=== PATIENT | female | born 1960 | race Caucasian/White ===

== ENCOUNTER 2022-02-09 10:10 | Outpatient (REF) | payer OTHER, SELFPAY ==
--- NOTE | ~2022-02-09 | XR_ITS ---
EXAMINATION: XR HAND, RIGHT XR HAND, LEFT CLINICAL INFORMATION: Bilateral hand pain. COMPARISON: None TECHNIQUE: 3 views of each hand. FINDINGS: RIGHT HAND: Interphalangeal Joints: Small marginal osteophytes at the IP joint of the thumb indicative of mild osteoarthritis. Small enthesopathic or subchondral cysts at the second and fourth DIP joints and fourth PIP joint, no marginal erosions. Remaining bones, joints and soft tissues unremarkable. LEFT HAND: Interphalangeal Joints: Small marginal osteophytes along the dorsal aspect of the third DIP joint indicative of mild osteoarthritis. Marginal osteophytes without joint space narrowing of the IP joint of the thumb indicative of mild osteoarthritis. The remaining bone and soft tissues are normal. No marginal erosions. XR/XR hand RT min 3V IMPRESSION: Right Hand: Mild osteoarthritis. Left Hand: Mild osteoarthritis
--- NOTE | ~2022-02-09 | XR_ITS ---
EXAMINATION: XR HAND, RIGHT XR HAND, LEFT CLINICAL INFORMATION: Bilateral hand pain. COMPARISON: None TECHNIQUE: 3 views of each hand. FINDINGS: RIGHT HAND: Interphalangeal Joints: Small marginal osteophytes at the IP joint of the thumb indicative of mild osteoarthritis. Small enthesopathic or subchondral cysts at the second and fourth DIP joints and fourth PIP joint, no marginal erosions. Remaining bones, joints and soft tissues unremarkable. LEFT HAND: Interphalangeal Joints: Small marginal osteophytes along the dorsal aspect of the third DIP joint indicative of mild osteoarthritis. Marginal osteophytes without joint space narrowing of the IP joint of the thumb indicative of mild osteoarthritis. The remaining bone and soft tissues are normal. No marginal erosions. XR/XR hand LT min 3V IMPRESSION: Right Hand: Mild osteoarthritis. Left Hand: Mild osteoarthritis
== END 2022-02-09 10:11 | disposition home or self-care (01) ==
LOC: HO.HMGCX 10:10
PROVIDERS: PCP Internal Medicine; Visit Provider Internal Medicine
DX: M79.641 Pain in right hand (principal); M79.642 Pain in left hand; E78.5 Hyperlipidemia, unspecified
CPT/HCPCS: 73130

== ENCOUNTER 2023-01-08 13:20 | Outpatient (AMB) | payer OTHER, SELFPAY ==
--- NOTE | 2023-01-08 13:26 | MHC.OFFVIS ---
Intake Vital Signs 01/08/23 13:27 Height 5 ft 1 in Weight 151 lb 14.376 oz BMI 28.7 BP 108/88 Blood Pressure Location Rt brachial Position Sitting Pulse 75 Pulse Source Pulse Oximeter Temp 98 F Temp Source Skin Pulse Oximetry (%) 98 Oxygen Delivery Method Room Air Intake Visit Reasons: Joint Pain Intake Note: New patient here for joint pain. 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 She complains of bilateral shoulder and bilateral hand pain. The shoulders hurt when she lifts the arm up to the horizontal. There is no injury that she can recall. 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 She is particularly uncomfortable in the shoulders when she is lifting arms overhead. It does not seem to bother her at night. The hands hurt mostly at the base of the thumbs, this is more problematic on the right hand. There is also some soft tissue swelling she has noted on the flexor tendon side of the 2nd finger. There is no redness or warmth. She does take occasional acetaminophen for this, perhaps once or twice a week. She also uses an [id number] ointment that she does not know the name of. It looks like she was prescribed meloxicam at some point but does not recall taking it. She does not have any hand paresthesias or numbness. Other joints apparently are not painful. 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 Other serologies including Sjogren's antibodies, anti DNA, and complement levels were all normal. [facility] Medical History (Updated 01/08/23 @ 14:29 by Rashad Kiser MD) Abnormal colonoscopy Annual physical exam Hyperlipidemia Hypertension Mammogram normal Normal Pap smear Surgical History No pertinent past surgical history Family History (Updated 01/08/23 @ 13:33 by CHEO Higuera) Father No problems noted. Mother HTN (hypertension) Social History (Updated 01/08/23 @ 13:33 by CHEO Higuera) Household Members: Spouse and Children Housing: House Alcohol intake: current Alcohol intake frequency: holidays/special occasions only Alcohol type: wine Patient Tobacco Use Status: Never used Tobacco Current occupational status: employed Current occupation: Housekeeping Cognitive needs: No Hearing needs: No Vision needs: No Review of Systems Const Details: Negative for appetite change, weight change, fever, chills, malaise and fatigue Eyes Details: Some ocular dryness but does not use any eyedrops. Negative for vision change, headaches and dizziness ENT Details: Negative for hearing change, tinnitus, oral ulcer, nose bleeds and oral dryness. Card Details: Negative chest pain, edema and syncope Resp Details: Negative for SOB, cough and wheezing GI Details: Negative indigestion/heartburn, nausea, abdominal pain, bowel changes, diarrhea, constipation and bloody stool. Details: Negative for dysuria, hematuria, nocturia, decreased force/flow and genital discharge Skin/Breast Details: Negative for itching, rash, hives, Raynaud's symptoms, sun sensitivity, and skin cancer Neuro Details: Negative for epilepsy, palsy, stroke, changes in speech, tingling and weakness Psych Details: Negative for anxiety, depression and stress Endo Details: Negative for polyuria and polydypsia Shaggy/Lymph Details: Negative for excessive bruising or bleeding. Physical Exam Vital Signs: Last Vital Signs Temp 98 F 01/08/23 13:27 Pulse 75 01/08/23 13:27 BP 108/88 01/08/23 13:27 Pulse Ox 98 01/08/23 13:27 Oxygen Delivery Method Room Air 01/08/23 13:27 BMI result Body Mass Index 28.7 APPEARANCE: Patient in no acute distress EYES no redness, pupils equal and reactive to light, eyelids normal. No temporal artery tenderness, redness or swelling. EARS: External ear normal, canal clear and tympanic membrane normal. NOSE/SINUS: Airflow through both nares, no nasal discharge, no bleeding THROAT: Oral mucosa moist, no ulcerations NECK: No thyromegaly or masses, no adenopathy, trachea midline. HEART: Regulrar rhythm, S1-S2 heard, no murmurs, rubs or gallops. LUNG: Clear to percussion and auscultation ABD: Normal bowel sounds, no organomegaly, masses or tenderness. EXTREMITIES: No edema, no calf tenderness, normal peripheral pulses. There are a few spider veins on the thigh regions bilaterally but no tenderness. NEURO: Oriented and alert x3. No focal weakness. Reflexes symmetric. Gait normal. SKIN: No inflammatory or neoplastic lesions. Normal color and turgor JOINT EXAM:.?? Cervical Spine:.? Full range of motion without pain; no tenderness. Thoracic Spine:.? No scoliosis.? No tenderness on palpation. Lumbar Spine:.? Alignment normal.? Full range of motion without pain, no tenderness. Chest Wall:.? No tenderness, swelling, increased warmth or erythema. Hands:.? Right: Mild pain with range of motion at the 2nd finger. There is mild tenderness with slight swelling at the base of the thumb. There is some tenderness along the 2nd flexor tendon with a wall while nodule consistent with flexor tendon sheath cyst. It is not red or warm. No triggering is appreciated. There is no sensory loss in the fingertips. Left: Slight tenderness at the base of the thumb but no swelling is appreciated. No areas of soft tissue swelling, flexor tendon triggering, thenar atrophy or sensory loss. Wrists:.? Right: Mild discomfort with flexion or extension at 75 degrees. Most of this pain is felt on the radial aspect of the wrist where there is some slight tenderness but no redness or swelling. Left: Normal pain-free range of motion without tenderness, swelling, increased warmth or erythema. Elbows:. Normal pain-free range of motion without tenderness, swelling, increased warmth or erythema. Shoulders:.?? Right: Mild pain with a at 150 degrees. The pain is felt over the top of the shoulder and anteriorly. There is no abductor weakness, swelling or adenopathy. There is mild pain with extremes of internal rotation or more than 20 degrees of external rotation. There is no AC joint tenderness or swelling. Left: Mild discomfort with extremes of normal range of motion. The discomfort is felt over the top shoulder. There is no adenopathy, abductor weakness, soft tissue, swelling, increased warmth or erythema. Hips:.? Full range of motion without pain. Hip bursa:.? No tenderness. Knees: Right: Normal pain-free range of motion with some slight patellofemoral crepitus but no effusion or tenderness. Left:?? Normal pain-free range of motion without tenderness, swelling, increased warmth or erythema.? There is no effusion or crepitation Ankles:.? Normal pain-free range of motion without tenderness, swelling, increased warmth or erythema. Feet:.? There is mild 1st MTP bony enlargement bilaterally with some slight tenderness on the right. Range of motion in those joints is somewhat limited but there is no soft tissue swelling, increased warmth or erythema. No other tenderness or swelling in the feet. Tender points:.? No tenderness to digital palpation at the occiput, trapezius, second rib, lateral epicondyle, knees, greater trochanter and gluteal area bilaterally. ? Results Reviewed Results Reviewed: [facility] [address] [address] XRay Report Signed Patient: Annabel Byrne MR#: [id number] : 1960 Acct:[id number] Age/Sex: 61 / F ADM Date: 02/09/22 [facility] Attending Dr: Jerri Fuller MD Ordering Physician: Jerri Fuller MD Date of Service: 02/09/22 Procedure(s): XR hand RT min 3V Accession Number(s): [id number] cc: Jerri Fuller MD~ EXAMINATION: XR HAND, RIGHT? XR HAND, LEFT CLINICAL INFORMATION: Bilateral hand pain.? COMPARISON: None? TECHNIQUE: 3 views of each hand.? FINDINGS: RIGHT HAND: Interphalangeal Joints: Small marginal osteophytes at the IP joint of the thumb indicative of mild osteoarthritis. Small enthesopathic or subchondral cysts at the second and fourth DIP joints and fourth PIP joint, no marginal erosions. Remaining bones, joints and soft tissues unremarkable. LEFT HAND: Interphalangeal Joints: Small marginal osteophytes along the dorsal aspect of the third DIP joint indicative of mild osteoarthritis. Marginal osteophytes without joint space narrowing of the IP joint of the thumb indicative of mild osteoarthritis. The remaining bone and soft tissues are normal. No marginal erosions. XR/XR hand RT min 3V IMPRESSION: Right Hand: Mild osteoarthritis. ? Left Hand: Mild osteoarthritis? Dictated By: Rebel Campos MD January 2022 lab work from PCP office: NINO positive with a 1-80 titer, ESR 11, rheumatoid factor negative, CCP antibody negative Assessment & Plan Assessment & Plan (1) NINO positive: Code(s): R76.8 - Other specified abnormal immunological findings in serum (2) Bilateral hand pain: Code(s): M79.641 - Pain in right hand; M79.642 - Pain in left hand (3) Shoulder pain, bilateral: Code(s): M25.511 - Pain in right shoulder; M25.512 - Pain in left shoulder (4) Tendonitis of both rotator cuffs: Code(s): M75.81 - Other shoulder lesions, right shoulder; M75.82 - Other shoulder lesions, left shoulder (5) Ganglion cyst of flexor tendon sheath of finger: Code(s): M67.449 - Ganglion, unspecified hand (6) Osteoarthritis of hands, bilateral: Code(s): M19.041 - Primary osteoarthritis, right hand; M19.042 - Primary osteoarthritis, left hand Plan The hand pain is consistent with some osteoarthritis at the base of the thumbs. There is some minimal changes evident on the x-ray of that disorder. She does have some nodular, mobile and tender swelling at the right 2nd flexor tendon. This probably represents a tenosynovial cyst and tendinitis. She does not have any triggering so I do not think right now I would pursue a local injection. She might want to see a hand surgeon if the symptoms continue. She could continue with the acetaminophen and topical agents for the symptomatic hand pain. I do not think she has any evidence to suggest SLE in spite of the low titer NINO. Other serologies were negative. Her painful range of motion in the shoulders suggest some rotator cuff tendinitis with impingement. We will check x-rays of the shoulders. Physical therapy is recommended. They wanted to find a place for PT in [place] so I referred her to [facility]. If the hand worsens in terms of flexor tendon discomfort she could ask her primary doctor for hand surgery referral. Rheumatology follow-up at this point is not necessary. Orders: Orders XR shoulder LT min 2V Today M25.511 - Pain in right shoulder, M25.512 - Pain in left shoulder XR shoulder RT min 2V Today M25.511 - Pain in right shoulder, M25.512 - Pain in left shoulder PT Evaluation and Treatment Today M75.81 - Other shoulder lesions, right shoulder, M75.82 - Other shoulder lesions, left shoulder Coding Level of Care Code New Pt Level 3 (21554) Diagnoses NINO positive R76.8 Bilateral hand pain M79.641; M79.642 Shoulder pain, bilateral M25.511; M25.512 Tendonitis of both rotator cuffs M75.81; M75.82 Ganglion cyst of flexor tendon sheath of finger M67.449 Osteoarthritis of hands, bilateral M19.041; M19.042
[2023-01-08 13:27] VITALS: BP 108/88; PULSE 75; TEMP 36.6; O2SAT 98; BMI 28.7
== END 2023-01-08 14:29 | disposition home or self-care (01) ==
PROVIDERS: PCP Internal Medicine; Visit Provider Internal Medicine Rheumatology
DX: R76.8 Other specified abnormal immunological findings in serum (principal); M79.641 Pain in right hand; M79.642 Pain in left hand; M25.511 Pain in right shoulder; M25.512 Pain in left shoulder; M75.81 Other shoulder lesions, right shoulder; M75.82 Other shoulder lesions, left shoulder; M67.449 Ganglion, unspecified hand; M19.041 Primary osteoarthritis, right hand; M19.042 Primary osteoarthritis, left hand
CPT/HCPCS: 99203

== ENCOUNTER → 2023-01-08 13:20 | Outpatient (BNVA) | payer OTHER, SELFPAY | PROVIDERS: PCP Internal Medicine; Visit Provider Internal Medicine Rheumatology ==

== ENCOUNTER 2023-12-04 12:53 | Outpatient (AMB) | payer OTHER, SELFPAY ==
[2023-12-04 13:07] VITALS: BP 130/78; PULSE 72; O2SAT 98; BMI 27.4
--- NOTE | 2023-12-04 13:07 | A.OFFPC_ITS ---
Vital Signs 12/04/23 13:07 Height 5 ft 1 in Weight 145 lb BMI 27.4 BP 130/78 Blood Pressure Location Lt brachial Position Sitting Pulse 72 Pulse Source Pulse Oximeter Pulse Oximetry (%) 98 Oxygen Delivery Method Room Air Intake Visit Reasons: PE Intake Note: Pt is here today for PE. Allergies No Known Allergies Allergy (Verified 12/04/23 13:07) Medication List - Last Reconciled 12/04/23 by Jerri Fuller MD amlodipine 5 mg PO DAILY Tobacco use date assessed: 12/04/23 Dental Screening Dental Screen Date: 12/04/23 Did you have a dental visit in the last 12 months?: Yes Did you have a dental problem in the last 6 months where you did not have access to dental care?: No Was dental information given to patient?: Patient has dentist HPI PE HPI Details Pt presents for PE. 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 Patient complains of epigastric abdominal discomfort on and off for a few months, worse after eat ing salads, vegetables. patient denies nausea vomiting fever chills hematochezia melena constipation diarrhea. She had negative colonoscopy in 2018. Hypertension is controlled on amlodipine [facility] Medical History (Updated 12/04/23 @ 13:40 by Jerri Fuller MD) Hyperlipidemia Normal Pap smear Mammogram normal Abnormal colonoscopy Hypertension Annual physical exam Surgical History No pertinent past surgical history Family History Father No problems noted. Mother HTN (hypertension) Social History Household Members: Spouse and Children Housing: House Alcohol intake: current Alcohol intake frequency: holidays/special occasions only Alcohol type: wine Patient Tobacco Use Status: Never used Tobacco e-Cigarette/Vaping Use: Never Used service: No Current occupational status: employed Current occupation: Housekeeping Cognitive needs: No Hearing needs: No Vision needs: No Questionnaire PHQ-9 Over the last 2 weeks, how often have you been bothered by any of the following problems? 1. Little interest or pleasure in doing things: several days 2. Feeling down, depressed, or hopeless: several days 3. Trouble falling or staying asleep, or sleeping too much: not at all 4. Feeling tired or having little energy: not at all 5. Poor appetite or overeating: not at all 6. Feeling bad about yourself - or that you are a failure or have let yourself or your family down: not at all 7. Trouble concentrating on things, such as reading the newspaper or watching television: not at all 8. Moving or speaking so slowly that other people could have noticed. Or the opposite - being so fidgety or restless that you have been moving around a lot more than usual: not at all 9. Thoughts that you would be better off or of hurting yourself in some way: not at all Total score: 2 Depression Screening Interpretation: Negative Depression Screening Done: Yes Source: Developed by Drs. Adrian Garcia, Linnea Bowser, Se Booker and colleagues, with an educational emmy from [employer]. Thrive Questionnaire Date Thrive assessed: 12/04/23 I am a: Patient What is your living situation today?: I have a steady place to live Within the past 12 months, did the food you bought not last and you didn't have the money to get more?: Never true Within the past 12 months, did you worry whether your food would run out before you got money to buy more?: Never true Do you have trouble paying for medicines?: No Do you have trouble getting transportation to medical appointments?: No Do you have trouble paying your heating and electricity bill?: No Do you have trouble taking care of your child, family member or friend?: No Do you have trouble with day-to-day activities such as bathing, preparing meals, shopping, managing finances, etc.?: No Are you currently unemployed and looking for a job?: No Are you interested in more education?: No Please select the resources that you would like help with: Housing/Senior Care Currently or been in a relationship where the following occur: No concerns reported THRIVE Score: 0 AUDIT C Alcohol Use Questionnaire (AUDIT-C) 1. How often do you have a drink containing alcohol?: Never 3. How often do you have six or more drinks on one occasion?: Never Total Score: 0 ROBIN-7 AMB Questionnaire ROBIN-7 Date ROBIN - 7 assessed: 12/04/23 Feeling nervous, anxious, or on edge: 0 = Not at all Not being able to stop or control worryin = Not at all Worrying too much about different things: 0 = Not at all Trouble relaxin = Not at all Being so restless that it is hard to sit still: 0 = Not at all Becoming easily annoyed or irritable: 0 = Not at all Feeling afraid as if something awful might happen: 0 = Not at all Total ROBIN-7 score (0-4 normal; 5-9 mild; 10-14 moderate; 15-21 severe): 0 Source: Developed by Drs. Adrian Garcia, Linnea Bowser, Se Booker and colleagues, with an educational emmy from [employer]. Review of Systems Const All systems reviewed & are unremarkable except as noted in HPI and below Eyes Reports no additional complaints ENT Reports no additional complaints Card Reports no additional complaints Resp Reports no additional complaints GI Reports no additional complaints Reports no additional complaints Physical exam (Primary Care) Vital Signs: Last Vital Signs Pulse 72 12/04/23 13:07 BP 130/78 12/04/23 13:07 Pulse Ox 98 12/04/23 13:07 Oxygen Delivery Method Room Air 12/04/23 13:07 BMI result Body Mass Index 27.4 Tobacco/Smoking Status: Tobacco use Status Tobacco use date assessed 12/04/23 12/04/23 13:12 Patient Tobacco Use Status Never used Tobacco 12/04/23 13:12 e-Cigarette/Vaping Use Never Used 12/04/23 13:12 PHQ-9: PHQ-9 Score PHQ-9: Total score 2 12/04/23 13:12 Depression Screening Interpretation: Negative Thrive Assessment: Date of Thrive Assessment Date Thrive assessed 12/04/23 12/04/23 13:12 Currently or been in a relationship where the following occur: No concerns reported Const General: no acute distress HENMT Head: Yes normal to inspection Face and sinus: Yes normal facial exam Mouth: Normal oral and palatal mucosa present Eyes General: appearance normal, both eyes and all related structures Neck Neck: Yes no lymphadenopathy and Yes supple Resp Effort & Inspection: normal respiratory effort Auscultation: clear to auscultation bilaterally Cardio Rhythm: regular rhythm Heart sounds: S1 normal heart sound present and S2 normal heart sound present GI Inspection: Yes normal to inspection Palpation (GI): Soft to palpation Percussion: Yes normal to percussion Auscultation: normal bowel sounds Assessment and Plan Assessment & Plan (1) Abdominal pain: Comment: RUQ pain Code(s): R10.9 - Unspecified abdominal pain Plan: Obtain abdominal ultrasound to rule out gallstones, well-balanced diet, avoidance of dairy, trial of Pepcid discussed with the patient (2) Shoulder pain, right: Code(s): M25.511 - Pain in right shoulder Plan: For chronic like shoulder pain check x-ray. Patient declined physical therapy because of high co-payment (3) Hyperlipidemia: Code(s): E78.5 - Hyperlipidemia, unspecified Plan: Fenofibrate 160 will be started lipid profile will be checked in 1 month (4) Hyperglycemia: Code(s): R73.9 - Hyperglycemia, unspecified Plan: ADA diet regular exercise weight loss discussed with the patient check A1c (5) Abnormal colonoscopy: Comment: 01/2019 [facility], 2 polyps hyperplastic, repeat in 10 years Code(s): R93.3 - Abnormal findings on diagnostic imaging of other parts of digestive tract (6) Hypertension: Code(s): I10 - Essential (primary) hypertension Plan: Continue amlodipine Orders: Orders US abdomen complete Today R10.9 - Unspecified abdominal pain XR shoulder RT min 2V Today M25.511 - Pain in right shoulder Comprehensive [place]. Panel Fast 1 Month E78.5 - Hyperlipidemia, unspecified, M25.511 - Pain in right shoulder, M25.512 - Pain in left shoulder, R73.9 - Hyperglycemia, unspecified Lipid Panel 1 Month E78.5 - Hyperlipidemia, unspecified, M25.511 - Pain in right shoulder, M25.512 - Pain in left shoulder, R73.9 - Hyperglycemia, unspecified Hemoglobin A1c 1 Month E78.5 - Hyperlipidemia, unspecified, M25.511 - Pain in right shoulder, M25.512 - Pain in left shoulder, R73.9 - Hyperglycemia, unspecified XR shoulder RT min 2V 01/08/23 M25.511 - Pain in right shoulder, M25.512 - Pain in left shoulder Medications: New fenofibrate 160 mg PO DAILY 90 tabs 0RF Coding Level of Care Code Est Pt Prev Care 40-64y(40855) Diagnoses Abdominal pain R10.9 Shoulder pain, right M25.511 Hyperlipidemia E78.5 Hyperglycemia R73.9 Abnormal colonoscopy R93.3 Hypertension I10
== END 2023-12-04 13:45 | disposition home or self-care (01) ==
PROVIDERS: PCP Internal Medicine; Visit Provider Internal Medicine
DX: Z00.00 Encounter for general adult medical examination without abnormal findings (principal); R10.9 Unspecified abdominal pain; M25.511 Pain in right shoulder; E78.5 Hyperlipidemia, unspecified; R73.9 Hyperglycemia, unspecified; R93.3 Abnormal findings on diagnostic imaging of other parts of digestive tract; I10 Essential (primary) hypertension
CPT/HCPCS: 99396

== ENCOUNTER 2023-12-04 13:37 | Outpatient (REF) | payer OTHER, SELFPAY ==
--- NOTE | ~2023-12-04 | XR_ITS ---
EXAMINATION: XR SHOULDER, RIGHT CLINICAL INFORMATION: Pain COMPARISON: None available. TECHNIQUE: Four views of the right shoulder. FINDINGS: No acute visible fracture or dislocation. Mild degenerative arthropathy of the glenohumeral and clavicular joint. Joint spaces are maintained. Soft tissues are unremarkable. Visualized portions of the chest are unremarkable. XR/XR shoulder RT min 2V IMPRESSION: 1. No acute visible fracture or dislocation. 2. Mild degenerative arthropathy of the glenohumeral and acromioclavicular joint.
== END 2023-12-04 13:38 | disposition home or self-care (01) ==
LOC: HO.HMGCX 13:37
PROVIDERS: PCP Internal Medicine; Visit Provider Internal Medicine
DX: M25.511 Pain in right shoulder (principal)
CPT/HCPCS: 73030

== ENCOUNTER 2023-12-13 08:56 | Outpatient (REF) | payer OTHER, SELFPAY ==
--- NOTE | ~2023-12-13 | US_ITS ---
EXAMINATION: US ABDOMEN COMPLETE CLINICAL INFORMATION: Unspecified abdominal pain. COMPARISON: None available. TECHNIQUE: Real-time imaging of the abdominal viscera. FINDINGS: PANCREAS: Tail obscured. ABDOMINAL AORTA: The proximal, mid, and distal segments are normal in caliber. Atherosclerotic changes. INFERIOR VENA CAVA: Visualized portions are normal. LIVER: The liver is normal in size. The liver contour is normal. Parenchymal echogenicity is normal. No focal hepatic lesion. There is no intrahepatic biliary duct dilatation seen. GALLBLADDER: Sludge and stones in the gallbladder. No gallbladder wall thickening or pericholecystic fluid. Negative sonographic Hicks's sign. COMMON BILE DUCT: Normal in caliber measuring 0.3 cm in diameter. RIGHT KIDNEY: No hydronephrosis. No renal calculi or focal parenchymal lesions. The kidney measures 12.1 cm in maximum dimension. LEFT KIDNEY: No hydronephrosis. No renal calculi. The kidney measures 10.9 cm in maximum dimension. Midpole cyst measures 1.2 x 1.5 x 1.7 cm. No further routine imaging follow-up is needed. SPLEEN: The spleen measures 10.7 cm in maximum dimension. FREE FLUID: None. US/US abdomen complete IMPRESSION: Cholelithiasis without sonographic evidence of acute cholecystitis.
== END 2023-12-13 08:57 | disposition home or self-care (01) ==
LOC: HO.HMGCX 08:56
PROVIDERS: PCP Internal Medicine; Visit Provider Internal Medicine
DX: R10.9 Unspecified abdominal pain (principal)
CPT/HCPCS: 76700

== ENCOUNTER 2024-01-02 11:18 | Outpatient (AMB) | payer OTHER, SELFPAY ==
[2024-01-02 11:24] VITALS: BP 136/74; PULSE 73; O2SAT 97; BMI 26.3
--- NOTE | 2024-01-02 11:24 | MHC.PC.OV ---
Vital Signs 01/02/24 11:24 Height 5 ft 1 in Weight 139 lb BMI 26.3 BP 136/74 Blood Pressure Location Lt brachial Position Sitting Pulse 73 Pulse Source Pulse Oximeter Pulse Oximetry (%) 97 Oxygen Delivery Method Room Air Intake Visit Reasons: CT-SCAN results review Intake Note: Pt is here today for ER follow up visit. Allergies No Known Allergies Allergy (Verified 01/02/24 11:29) Medication List - Last Reconciled 01/02/24 by Jerri Fuller MD amlodipine 5 mg PO DAILY fenofibrate 160 mg PO DAILY Tobacco use date assessed: 01/02/24 Dental Screening Dental Screen Date: 12/04/[address]-SCAN results review HPI Details Patient presents for the follow-up of ER visit on December 29 for left sided abdominal pain nausea and vomiting. The workup included CT of the abdomen and pelvis which showed constipation, gallbladder wall thickening without inflammatory changes and cystic lesion in the left pelvis posteriorly to distal sigmoid colon measuring 5.1 x 4.2 x 4.2 cm differential paraovarian cyst or neoplasm, MRI recommended. Patient reports persistent discomfort in left lower quadrant but no nausea vomiting fever chills [facility] Medical History (Updated 01/02/24 @ 12:42 by Jerri Fuller MD) Normal Pap smear Hyperlipidemia Mammogram normal Abnormal colonoscopy Hypertension Annual physical exam Surgical History No pertinent past surgical history Family History Father No problems noted. Mother HTN (hypertension) Social History Household Members: Spouse and Children Housing: House Alcohol intake: current Alcohol intake frequency: holidays/special occasions only Alcohol type: wine Patient Tobacco Use Status: Never used Tobacco e-Cigarette/Vaping Use: Never Used service: No Current occupational status: employed Current occupation: Housekeeping Cognitive needs: No Hearing needs: No Vision needs: No Questionnaire PHQ-9 Over the last 2 weeks, how often have you been bothered by any of the following problems? 1. Little interest or pleasure in doing things: several days 2. Feeling down, depressed, or hopeless: several days 3. Trouble falling or staying asleep, or sleeping too much: not at all 4. Feeling tired or having little energy: not at all 5. Poor appetite or overeating: not at all 6. Feeling bad about yourself - or that you are a failure or have let yourself or your family down: not at all 7. Trouble concentrating on things, such as reading the newspaper or watching television: not at all 8. Moving or speaking so slowly that other people could have noticed. Or the opposite - being so fidgety or restless that you have been moving around a lot more than usual: not at all 9. Thoughts that you would be better off or of hurting yourself in some way: not at all Total score: 2 Depression Screening Interpretation: Negative Depression Screening Done: Yes Source: Developed by Drs. Adrian Garcia, Linnea Bowser, Se Booker and colleagues, with an educational emmy from [employer]. Thrive Questionnaire Date Thrive assessed: 12/04/23 I am a: Patient What is your living situation today?: I have a steady place to live Within the past 12 months, did the food you bought not last and you didn't have the money to get more?: Never true Within the past 12 months, did you worry whether your food would run out before you got money to buy more?: Never true Do you have trouble paying for medicines?: No Do you have trouble getting transportation to medical appointments?: No Do you have trouble paying your heating and electricity bill?: No Do you have trouble taking care of your child, family member or friend?: No Do you have trouble with day-to-day activities such as bathing, preparing meals, shopping, managing finances, etc.?: No Are you currently unemployed and looking for a job?: No Are you interested in more education?: No Please select the resources that you would like help with: None Currently or been in a relationship where the following occur: No concerns reported THRIVE Score: 0 AUDIT C Alcohol Use Questionnaire (AUDIT-C) 1. How often do you have a drink containing alcohol?: Never 3. How often do you have six or more drinks on one occasion?: Never Total Score: 0 ROBIN-7 AMB Questionnaire ROBIN-7 Date ROBIN - 7 assessed: 12/04/23 Feeling nervous, anxious, or on edge: 0 = Not at all Not being able to stop or control worryin = Not at all Worrying too much about different things: 0 = Not at all Trouble relaxin = Not at all Being so restless that it is hard to sit still: 0 = Not at all Becoming easily annoyed or irritable: 0 = Not at all Feeling afraid as if something awful might happen: 0 = Not at all Total ROBIN-7 score (0-4 normal; 5-9 mild; 10-14 moderate; 15-21 severe): 0 Source: Developed by Drs. Adrian Garcia, Linnea Bowser, Se Booker and colleagues, with an educational emmy from [employer]. Review of Systems Const All systems reviewed & are unremarkable except as noted in HPI and below Eyes Reports no additional complaints ENT Reports no additional complaints Card Reports no additional complaints Resp Reports no additional complaints GI Reports no additional complaints Reports no additional complaints Physical exam (Primary Care) Vital Signs: Last Vital Signs Pulse 73 01/02/24 11:24 BP 136/74 01/02/24 11:24 Pulse Ox 97 01/02/24 11:24 Oxygen Delivery Method Room Air 01/02/24 11:24 BMI result Body Mass Index 26.3 Tobacco/Smoking Status: Tobacco use Status Tobacco use date assessed 01/02/24 01/02/24 11:29 Patient Tobacco Use Status Never used Tobacco 01/02/24 11:29 e-Cigarette/Vaping Use Never Used 01/02/24 11:24 PHQ-9: PHQ-9 Score PHQ-9: Total score 2 01/02/24 11:24 Depression Screening Interpretation: Negative Thrive Assessment: Date of Thrive Assessment Date Thrive assessed 12/04/23 01/02/24 11:24 Currently or been in a relationship where the following occur: No concerns reported Const General: no acute distress Eyes General: appearance normal, both eyes and all related structures Resp Effort & Inspection: normal respiratory effort Auscultation: clear to auscultation bilaterally Cardio Rhythm: regular rhythm Heart sounds: S1 normal heart sound present and S2 normal heart sound present GI Inspection: Yes normal to inspection Palpation (GI): Soft to palpation Percussion: Yes normal to percussion Auscultation: normal bowel sounds Assessment and Plan Assessment & Plan (1) Ovarian mass, left: Comment: 5.1 x4.2x4.2 cm Complex cystic lesion and left pelvis with nodular mineralized component CT abd/pelvis 04/30/2024 Code(s): N83.8 - Other noninflammatory disorders of ovary, fallopian tube and broad ligament Plan: schedule MR to evaluate (2) Serrated polyp of colon: Comment: 2019 [facility] Code(s): K63.5 - Polyp of colon Plan: 2nd referral to GI for colonoscopy (3) Constipation: Code(s): K59.00 - Constipation, unspecified Plan: Patient was advised to try MiraLax at least twice a day until regular bowel movements, increase fiber and fluid intake (4) Normal Pap smear: Comment: senior account representative 2019 Dr. Orr, 07/2023 (5) Hypertension: Code(s): I10 - Essential (primary) hypertension Plan: Continue Amlodipine Orders: Orders MR pelvis wo/w con Today N83.8 - Other noninflammatory disorders of ovary, fallopian tube and broad ligament Referrals Gastroenterology Referral K59.00 - Constipation, unspecified, K63.5 - Polyp of colon Coding Level of Care Code Est Pt Level 4 (83362) Diagnoses Ovarian mass, left N83.8 Serrated polyp of colon K63.5 Constipation K59.00 Normal Pap smear Z12.4 Hypertension I10
== END 2024-01-02 12:45 | disposition home or self-care (01) ==
PROVIDERS: PCP Internal Medicine; Visit Provider Internal Medicine
DX: N83.8 Other noninflammatory disorders of ovary, fallopian tube and broad ligament (principal); K63.5 Polyp of colon; K59.00 Constipation, unspecified; Z12.4 Encounter for screening for malignant neoplasm of cervix; I10 Essential (primary) hypertension
CPT/HCPCS: 99214

== ENCOUNTER 2024-01-02 12:21 | Outpatient (REF) | payer OTHER, SELFPAY ==
[2024-01-02 17:20] LABS: Alanine Aminotransferase 17 U/L (0-31); Albumin Level 4.2 g/dL (3.5-5.0); Alkaline Phosphatase 56 U/L (39-117); Anion Gap 12 (12-20); Aspartate Amino Transferase 14 U/L (5-31); Bilirubin Total 0.4 mg/dL (0.0-1.0); Blood Urea Nitrogen 12 mg/dL (9-16); Calcium 9.9 mg/dL (8.4-10.2); Carbon Dioxide 25 mmol/L (22-29); Chloride 106 mmol/L (96-108); Cholesterol 165 mg/dL (<200); Estimated Glomerular Filt Rate > 60; Glucose Fasting 89 mg/dL (60-99); HDL Cholesterol 46 mg/dL (>40); LDL Cholesterol Calculated 99 mg/dL (<100); Potassium 3.6 mmol/L (3.3-5.1); Sodium 139 mmol/L (135-145); Total Protein 7.2 g/dL (6.5-8.0); Triglycerides 101 mg/dL (<150)
[2024-01-02 17:57] LABS: Estimated Average Glucose 114 mg/dL; Hemoglobin A1c % 5.6 % (<6.0)
== END 2024-01-02 12:22 | disposition home or self-care (01) ==
LOC: HO.HMGCLDS 12:21
PROVIDERS: PCP Internal Medicine; Visit Provider Internal Medicine
DX: R73.9 Hyperglycemia, unspecified (principal); M25.512 Pain in left shoulder; M25.511 Pain in right shoulder; E78.5 Hyperlipidemia, unspecified
CPT/HCPCS: 36415; 80053; 80061; 83036

== ENCOUNTER 2024-12-12 09:38 | Outpatient (AMB) | payer OTHER, SELFPAY ==
[2024-12-12 09:40] VITALS: BP 142/82; PULSE 66; RESP 18; TEMP 36.6; O2SAT 98; BMI 27.2
--- NOTE | 2024-12-12 09:40 | A.OFFPC_ITS ---
Vital Signs 12/12/24 09:40 Height 5 ft 1 in Weight 144 lb BMI 27.2 BP 142/82 H Blood Pressure Location Lt brachial Position Sitting Respiration 18 Pulse 66 Pulse Source Pulse Oximeter Temp 97.9 F Temp Source Oral Pulse Oximetry (%) 98 Oxygen Delivery Method Room Air Intake Visit Reasons: Annual PE Intake Note: Pt is here today for PE. Allergies No Known Allergies Allergy (Verified 12/12/24 09:42) Medication List - Last Reconciled 12/12/24 by Jerri Fuller MD amlodipine 5 mg PO DAILY Tobacco use date assessed: 12/12/24 Dental Screening Dental Screen Date: 12/12/24 Did you have a dental visit in the last 12 months?: Yes Did you have a dental problem in the last 6 months where you did not have access to dental care?: No Was dental information given to patient?: Patient has dentist HPI Annual PE HPI Details Patient presents for physical. She complains of bilateral hands feeling tingling numb and painful worse at night but also when using her hands a lot. 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 [facility] Medical History (Updated 12/12/24 @ 16:34 by Jerri Fuller MD) Annual physical exam Abnormal carotid pulse Normal Pap smear Hyperlipidemia Mammogram normal Abnormal colonoscopy Hypertension Surgical History No pertinent past surgical history Family History Father No problems noted. Mother HTN (hypertension) Social History Household Members: Spouse and Children Housing: House Alcohol intake: current Alcohol intake frequency: holidays/special occasions only Alcohol type: wine Patient Tobacco Use Status: Never used Tobacco e-Cigarette/Vaping Use: Never Used service: No Current occupational status: employed Current occupation: Housekeeping Cognitive needs: No Hearing needs: No Vision needs: No Questionnaire PHQ-9 Over the last 2 weeks, how often have you been bothered by any of the following problems? 1. Little interest or pleasure in doing things: not at all 2. Feeling down, depressed, or hopeless: not at all 3. Trouble falling or staying asleep, or sleeping too much: not at all 4. Feeling tired or having little energy: not at all 5. Poor appetite or overeating: not at all 6. Feeling bad about yourself - or that you are a failure or have let yourself or your family down: not at all 7. Trouble concentrating on things, such as reading the newspaper or watching television: not at all 8. Moving or speaking so slowly that other people could have noticed. Or the opposite - being so fidgety or restless that you have been moving around a lot more than usual: not at all 9. Thoughts that you would be better off or of hurting yourself in some way: not at all Total score: 0 Depression Screening Interpretation: Negative Depression Screening Done: Yes [id number] - PHQ-9 Billing: Yes Source: Developed by Drs. Adrian Garcia, Linnea Bowser, Se Booker and colleagues, with an educational emmy from [employer]. Thrive Questionnaire Date Thrive assessed: 12/12/24 I am a: Patient What is your living situation today?: I have a steady place to live Within the past 12 months, did the food you bought not last and you didn't have the money to get more?: Never true Within the past 12 months, did you worry whether your food would run out before you got money to buy more?: Never true Do you have trouble paying for medicines?: No Do you have trouble getting transportation to medical appointments?: No Do you have trouble paying your heating and electricity bill?: No Do you have trouble taking care of your child, family member or friend?: No Do you have trouble with day-to-day activities such as bathing, preparing meals, shopping, managing finances, etc.?: No Are you currently unemployed and looking for a job?: No Are you interested in more education?: No Please select the resources that you would like help with: None Currently or been in a relationship where the following occur: No concerns reported THRIVE Score: 0 AUDIT C Alcohol Use Questionnaire (AUDIT-C) 1. How often do you have a drink containing alcohol?: 2-4 times a month 2. How many drinks containing alcohol do you have on a typical day when you are drinking?: 1 or 2 3. How often do you have six or more drinks on one occasion?: Less than monthly Total Score: 3 ROBIN-7 AMB Questionnaire ROBIN-7 Date ROBIN - 7 assessed: 12/12/24 Feeling nervous, anxious, or on edge: 0 = Not at all Not being able to stop or control worryin = Not at all Worrying too much about different things: 0 = Not at all Trouble relaxin = Not at all Being so restless that it is hard to sit still: 0 = Not at all Becoming easily annoyed or irritable: 0 = Not at all Feeling afraid as if something awful might happen: 0 = Not at all Total ROBIN-7 score (0-4 normal; 5-9 mild; 10-14 moderate; 15-21 severe): 0 Source: Developed by Drs. Adrian Garcia, Linnea Bowser, Se Booker and colleagues, with an educational emmy from [employer]. ROBIN-7 Assessment Billing ROBIN-7 Assessment Tool: ROBIN-7 Assessment 91523 Review of Systems Const All systems reviewed & are unremarkable except as noted in HPI and below Eyes Reports no additional complaints ENT Reports no additional complaints Card Reports no additional complaints Resp Reports no additional complaints GI Reports no additional complaints Reports no additional complaints Physical exam (Primary Care) Vital Signs: Last Vital Signs Temp 97.9 F 12/12/24 09:40 Pulse 66 12/12/24 09:40 Resp 18 12/12/24 09:40 BP 142/82 H 12/12/24 09:40 Pulse Ox 98 12/12/24 09:40 Oxygen Delivery Method Room Air 12/12/24 09:40 BMI result Body Mass Index 27.2 Tobacco/Smoking Status: Tobacco use Status Tobacco use date assessed 12/12/24 12/12/24 09:47 Patient Tobacco Use Status Never used Tobacco 12/12/24 09:47 e-Cigarette/Vaping Use Never Used 12/12/24 09:47 PHQ-9: PHQ-9 Score PHQ-9: Total score 0 12/12/24 10:58 Depression Screening Interpretation: Negative Thrive Assessment: Date of Thrive Assessment Date Thrive assessed 12/12/24 12/12/24 09:47 Currently or been in a relationship where the following occur: No concerns reported Const General: no acute distress HENMT Head: Yes normal to inspection Ears: hearing grossly normal bilaterally Face and sinus: Yes normal facial exam Throat: Yes posterior oropharynx normal Eyes General: appearance normal, both eyes and all related structures Neck Other: There is an asymmetric pulsing in the right carotid artery versus left no te nderness in the area Neck: Yes no lymphadenopathy and Yes supple Resp Effort & Inspection: normal respiratory effort Auscultation: clear to auscultation bilaterally Cardio Rhythm: regular rhythm Heart sounds: S1 normal heart sound present and S2 normal heart sound present GI Inspection: Yes normal to inspection Palpation (GI): Soft to palpation Percussion: Yes normal to percussion Auscultation: normal bowel sounds Coding Level of Care Code Est Pt Prev Care 40-64y(51711) Diagnoses Carpal tunnel syndrome G56.00 Abnormal colonoscopy R93.3 Hypertension I10 Hyperlipidemia E78.5 Abnormal carotid pulse R09.89 Annual physical exam Z00.00 Additional Codes ROBIN-7 Assessment Billing - ROBIN-7 Assessment Tool: ROBIN-7 Assessment 45794 ([id number]) PHQ-9 - 20380 - PHQ-9 Billing: Yes ([id number]) Assessment & Plan Assessment & Plan (1) Carpal tunnel syndrome: Code(s): G56.00 - Carpal tunnel syndrome, unspecified upper limb Category: Medical Plan: Obtain nerve conduction study to evaluate for bilateral carpal tunnel (2) Abnormal colonoscopy: Comment: 01/2019 [facility], 2 polyps: 1 hyperplastic and 1 serrated, repeat 5 yrs, referred to GI 01/2023 Code(s): R93.3 - Abnormal findings on diagnostic imaging of other parts of digestive tract Category: Medical Plan: Patient's never scheduled an appointment with GI. She will be referred to GI for repeat colonoscopy as soon as possible (3) Hypertension: Code(s): I10 - Essential (primary) hypertension Category: Medical Plan: Increase amlodipine to 7.5 mg daily follow-up in 2 months (4) Hyperlipidemia: Code(s): E78.5 - Hyperlipidemia, unspecified Category: Medical Plan: Continue low-cholesterol diet increase physical activity weight loss discussed with the patient (5) Abnormal carotid pulse: Comment: R carotid Code(s): R09.89 - Other specified symptoms and signs involving the circulatory and respiratory systems Category: Medical Plan: Obtain carotid ultrasound Doppler to evaluate for right carotid artery aneurysm (6) Annual physical exam: Code(s): Z00.00 - Encounter for general adult medical examination without abnormal findings Category: Medical Plan: Well-balanced diet regular physical activity weight loss discussed with the patient. She will call to schedule mammogram will be referred to GI and is up-to-date with the Pap smear by coil tier Orders: Orders US carotid duplex BI Today R09.89 - Other specified symptoms and signs i nvolving the circulatory and respiratory systems NE nerve conduction velocity Today G56.03 - Carpal tunnel syndrome, bilateral upper limbs Comprehensive [place]. Panel Fast Today E78.5 - Hyperlipidemia, unspecified, I10 - Essential (primary) hypertension Lipid Panel Today E78.5 - Hyperlipidemia, unspecified, I10 - Essential (primary) hypertension TSH reflex Free T4 Today E78.5 - Hyperlipidemia, unspecified, I10 - Essential (primary) hypertension Complete Blood Count Auto Diff Today E78.5 - Hyperlipidemia, unspecified, I10 - Essential (primary) hypertension Vitamin D 25-OH Total Today E78.5 - Hyperlipidemia, unspecified, I10 - Essenti al (primary) hypertension Referrals Gastroenterology Referral K63.5 - Polyp of colon, R93.3 - Abnormal findings on diagnostic imaging of other parts of digestive tract Medications: Changed From amlodipine 5 mg PO DAILY 90 tabs 3RF To amlodipine 1 /12 orally daily; 135 tabs 3RF Refilled amlodipine 5 mg PO DAILY 90 tabs 3RF
== END 2024-12-12 11:02 | disposition home or self-care (01) ==
PROVIDERS: PCP Internal Medicine; Visit Provider Internal Medicine
DX: G56.00 Carpal tunnel syndrome, unspecified upper limb (principal); R93.3 Abnormal findings on diagnostic imaging of other parts of digestive tract; I10 Essential (primary) hypertension; E78.5 Hyperlipidemia, unspecified; R09.89 Other specified symptoms and signs involving the circulatory and respiratory systems; Z00.00 Encounter for general adult medical examination without abnormal findings

== ENCOUNTER 2024-12-12 09:38 | Outpatient (REF) | payer OTHER, SELFPAY ==
[2024-12-12 14:26] LABS: MANUAL DIFF FLAG NO
[2024-12-12 14:33] LABS: Hematocrit 38.6 % (37.0-47.0); Hemoglobin 12.8 g/dl (12.0-16.0); Imm Gran Abs Auto 0.01 X10*3/uL (0.00-0.03); Imm Gran Pct Auto 0.1 % (0.0-0.4); Lymphocytes Absolute Auto 3.6 X10*3/uL (1.2-4.9); Mean Corpuscular HGB Conc 33.2 g/dl (31.0-35.0); Mean Corpuscular Hemoglobin 27.8 pg (27.0-33.0); Mean Corpuscular Volume 83.7 fL (80.0-98.0); NRBC Abs Auto 0.000 X10*3/uL (0.0-0.012); NRBC Pct Auto 0.0 /100WBC (0.0-0.2); Platelet Count 292 X10*3/uL (160-400); Red Blood Count 4.61 X10*6/uL (4.20-5.50); White Blood Count 7.4 X10*3/uL (4.8-10.8)
[2024-12-12 15:04] LABS: Alanine Aminotransferase 19 U/L (0-31); Albumin Level 4.5 g/dL (3.5-5.0); Alkaline Phosphatase 88 U/L (39-117); Anion Gap 11 (12-20); Aspartate Amino Transferase 24 U/L (5-31); Blood Urea Nitrogen 8 mg/dL (9-16); Calcium 9.5 mg/dL (8.4-10.2); Carbon Dioxide 28 mmol/L (22-29); Chloride 106 mmol/L (96-108); Cholesterol 260 mg/dL (<200); Estimated Glomerular Filt Rate > 60; HDL Cholesterol 47 mg/dL (>40); Potassium 3.5 mmol/L (3.3-5.1); Sodium 141 mmol/L (135-145); Total Protein 7.5 g/dL (6.5-8.0); Triglycerides 213 mg/dL (<150)
== END 2024-12-12 09:39 | disposition home or self-care (01) ==
LOC: HO.HMGCLDS 09:38
PROVIDERS: PCP Internal Medicine; Visit Provider Internal Medicine
DX: Z00.00 Encounter for general adult medical examination without abnormal findings (principal); I10 Essential (primary) hypertension; E78.5 Hyperlipidemia, unspecified; G56.00 Carpal tunnel syndrome, unspecified upper limb; R93.3 Abnormal findings on diagnostic imaging of other parts of digestive tract; R09.89 Other specified symptoms and signs involving the circulatory and respiratory systems; Z79.899 Other long term (current) drug therapy; Z13.31 Encounter for screening for depression; Z13.39 Encounter for screening examination for other mental health and behavioral disorders
CPT/HCPCS: 36415; 80053; 80061; 82306; 84443; 85025; 96127

== ENCOUNTER 2025-02-09 15:29 | Outpatient (REF) | payer OTHER, SELFPAY ==
--- NOTE | ~2025-02-09 | US_ITS ---
EXAMINATION: US EXTRACRANIAL CAROTID DUPLEX, BILATERAL CLINICAL INFORMATION: R09.89 - Other specified symptoms and signs involving the circulatory COMPARISON: None available. TECHNIQUE: Real-time ultrasound and Doppler techniques (integrating B-mode 2-D vascular images, Doppler spectral analysis and color-flow Doppler imaging) were utilized to interrogate the extracranial carotid arteries, the vertebral arteries and proximal subclavian arteries bilaterally. The degree of stenosis is determined by criteria similar to NASCET. FINDINGS: Right Side: 1. There is no atherosclerotic plaque seen in the bifurcation/proximal ICA region. 2. The common carotid artery PSV proximally is 158 cm/s and distally 62 cm/s. 3. The proximal internal carotid artery velocities are 64 cm/s systolic and 18 cm/s diastolic. 4. The proximal external carotid artery PSV is 88 cm/s. 5. The vertebral artery shows antegrade flow. 6. The subclavian artery waveforms are biphasic. ICA/CCA ratio 0.4 Left Side: 1. There is no atherosclerotic plaque seen in the bifurcation/proximal ICA region. 2. The common carotid artery PSV proximally is 86 cm/s and distally 63 cm/s. 3. The proximal internal carotid artery velocities are 53 cm/s systolic and 18 cm/s diastolic. 4. The proximal external carotid artery PSV is 82 cm/s. 5. The vertebral artery shows antegrade flow. 6. The subclavian artery waveforms are triphasic. ICA/CCA ratio 0.6 US/US carotid duplex BI IMPRESSION: 1. RIGHT: No hemodynamically significant stenosis 2. LEFT: No hemodynamically significant stenosis. Electronically signed by: Bird Bond MD 02/09/2025 04:48 PM EDT
== END 2025-02-09 15:30 | disposition home or self-care (01) ==
LOC: HO.US 15:29
PROVIDERS: PCP Internal Medicine; Visit Provider Internal Medicine
DX: R09.89 Other specified symptoms and signs involving the circulatory and respiratory systems (principal)
CPT/HCPCS: 93880

== ENCOUNTER → 2025-02-09 15:33 | Outpatient (BNV) | payer OTHER, SELFPAY | PROVIDERS: PCP Internal Medicine; Visit Provider Radiology Diagnostic Radiology | DX: R09.89 Other specified symptoms and signs involving the circulatory and respiratory systems (principal) | CPT/HCPCS: 93880 ==

== ENCOUNTER 2025-02-20 12:31 | Outpatient (REF) | payer OTHER, SELFPAY ==
--- NOTE | 2025-02-20 12:35 | EMG_ITS ---
Chief complaint: Bilateral hand pain Reason for referral: Evaluate for Carpal Tunnel Syndrome Referred by: Dr. Fuller Procedure done: Bilateral upper extremities NCS/EMG Precautions and/or limitations: None The limb temperature was monitored continuously and remained between 32-36 degrees C during the performance of the NCS. Nerve Conduction Studies Anti Sensory Summary Table ?Stim Site NR Onset (ms) Norm Onset (ms) Peak (ms) Norm Peak (ms) O-P Amp (?V) Norm O-P Amp Site1 Site2 Delta-0 (ms) Dist (cm) Daniel (m/s) Norm Daniel (m/s) Left Median Anti Sensory (2nd Digit) Wrist ? 2.8 3.6 <3.6 52.9 >10 Wrist 2nd Digit 2.8 14.0 50 Right Median Anti Sensory (2nd Digit) Wrist ? 2.8 3.4 <3.6 66.0 >10 Wrist 2nd Digit 2.8 14.0 50 Right Radial Anti Sensory (Thumb) Forearm ? 1.9 2.2 <3.1 27.2 Forearm Thumb 1.9 0.0 Left Ulnar Anti Sensory (5th Digit) Wrist ? 2.1 3.0 <3.7 84.7 >15.0 Wrist 5th Digit 2.1 14.0 67 Right Ulnar Anti Sensory (5th Digit) Wrist ? 2.1 3.0 <3.7 70.3 >15.0 Wrist 5th Digit 2.1 14.0 67 Motor Summary Table ?Stim Site NR Onset (ms) Norm Onset (ms) O-P Amp (mV) Norm O-P Amp iAmp (mV) Amp (1st) (%) Site1 Site2 Delta-0 (ms) Dist (cm) Daniel (m/s) Norm Daniel (m/s) Left Median Motor (Abd Poll Brev) Wrist ? 3.7 <3.9 10.9 >4.5 12.1 100.0 Elbow Wrist 3.6 19.0 53 >45 Elbow ? 7.3 10.7 11.9 98.2 Right Median Motor (Abd Poll Brev) Wrist ? 3.2 <3.9 10.5 >4.5 11.9 100.0 Elbow Wrist 4.0 19.0 48 >45 Elbow ? 7.2 9.7 10.9 92.4 Left Ulnar Motor (Abd Dig Minimi) Wrist ? 2.9 <3.0 9.1 >5 10.0 100.0 B Elbow Wrist 3.0 19.0 63 >45 B Elbow ? 5.9 9.7 10.6 106.6 A Elbow B Elbow 1.6 10.0 63 >45 A Elbow ? 7.5 8.8 9.8 96.7 Right Ulnar Motor (Abd Dig Minimi) Wrist ? 3.0 <3.0 9.5 >5 10.5 100.0 B Elbow Wrist 2.9 18.0 62 >45 B Elbow ? 5.9 9.1 10.2 95.8 A Elbow B Elbow 1.3 10.0 77 >45 A Elbow ? 7.2 8.8 9.9 92.6 EMG ?Side Muscle Nerve Root Ins Act Fibs Psw Amp Dur Poly Recrt Int Pat Comment Right 1stDorInt Ulnar C8-T1 Nml Nml Nml Nml Nml 0 Nml Complete Right FlexCarRad Median C6-7 Nml Nml Nml Nml Nml 0 Nml Complete Right Biceps Musculocut C5-6 Nml Nml Nml Nml Nml 0 Nml Complete Right Triceps Radial C6-7-8 Nml Nml Nml Nml Nml 0 Nml Complete Right Deltoid Axillary C5-6 Nml Nml Nml Nml Nml 0 Nml Complete Left 1stDorInt Ulnar C8-T1 Nml Nml Nml Nml Nml 0 Nml Complete Left FlexCarRad Median C6-7 Nml Nml Nml Nml Nml 0 Nml Complete Left Biceps Musculocut C5-6 Nml Nml Nml Nml Nml 0 Nml Complete Left Triceps Radial C6-7-8 Nml Nml Nml Nml Nml 0 Nml Complete Left Deltoid Axillary C5-6 Nml Nml Nml Nml Nml 0 Nml Complete FINDINGS: All motor and sensory nerves tested showed normal latencies, amplitudes and conduction velocities. Concentric needle EMG was performed in selected muscles of the bilateral upper extremities. Study did not reveal signs of electric abnormalities as shown in the table above. IMPRESSION: 1. This is a normal study. 2. There is no electrodiagnostic evidence for median neuropathy, ulnar neuropathy, brachial plexopathy, or cervical radiculopathy. Thank you for your kind referral. Davida Tucker MD, NITHIN Board Certified, [place] Board [employer] and [employer] (ABPMR) Board Certified, [place] Board of Electrodiagnostic Medicine (ABEM) CODIN [phone] x 2 MTDD
== END 2025-02-20 12:32 | disposition home or self-care (01) ==
LOC: HO.NEURO 12:31
PROVIDERS: PCP Internal Medicine; Visit Provider Internal Medicine
DX: G56.03 Carpal tunnel syndrome, bilateral upper limbs (principal)
CPT/HCPCS: 95886; 95911

== ENCOUNTER → 2025-02-20 12:35 | Outpatient (BNV) | payer OTHER, SELFPAY | PROVIDERS: PCP Internal Medicine; Visit Provider Physical Medicine & Rehabilitation | DX: G56.03 Carpal tunnel syndrome, bilateral upper limbs (principal) | CPT/HCPCS: 95886; 95911 ==

== ENCOUNTER 2025-03-11 08:59 | Outpatient (AMB) | payer OTHER, SELFPAY ==
[2025-03-11 09:08] VITALS: BP 136/74; PULSE 77; RESP 17; TEMP 36.7; O2SAT 99; BMI 27.2
--- NOTE | 2025-03-11 09:08 | A.OFFPC_ITS ---
Vital Signs 03/11/25 09:08 Height 5 ft 1 in Weight 144 lb BMI 27.2 BP 136/74 Blood Pressure Location Lt brachial Position Sitting Respiration 17 Pulse 77 Pulse Source Pulse Oximeter Temp 98.1 F Temp Source Oral Pulse Oximetry (%) 99 Oxygen Delivery Method Room Air Intake Visit Reasons: 2 months Intake Note: Pt is here today for 2 month follow up visit. Allergies No Known Allergies Allergy (Verified 03/11/25 09:30) Medication List - Last Reconciled 03/11/25 by Jerri Fuller MD amlodipine 1 and a half tablet orally daily; Tobacco use date assessed: 03/11/25 Dental Screening Dental Screen Date: 12/12/24 HPI 2 months HPI Details Pt presents for f/u HTN, stable on Amlodipine. [facility] Medical History (Updated 03/11/25 @ 15:41 by Jerri Fuller MD) Serrated polyp of colon Annual physical exam Abnormal carotid pulse Normal Pap smear Hyperlipidemia Mammogram normal Abnormal colonoscopy Hypertension Surgical History No pertinent past surgical history Family History Father No problems noted. Mother HTN (hypertension) Social History Household Members: Spouse and Children Housing: House Alcohol intake: current Alcohol intake frequency: holidays/special occasions only Alcohol type: wine Patient Tobacco Use Status: Never used Tobacco e-Cigarette/Vaping Use: Never Used service: No Current occupational status: employed Current occupation: Housekeeping Cognitive needs: No Hearing needs: No Vision needs: No Questionnaire PHQ-9 Over the last 2 weeks, how often have you been bothered by any of the following problems? 1. Little interest or pleasure in doing things: not at all 2. Feeling down, depressed, or hopeless: not at all 3. Trouble falling or staying asleep, or sleeping too much: not at all 4. Feeling tired or having little energy: not at all 5. Poor appetite or overeating: not at all 6. Feeling bad about yourself - or that you are a failure or have let yourself or your family down: not at all 7. Trouble concentrating on things, such as reading the newspaper or watching television: not at all 8. Moving or speaking so slowly that other people could have noticed. Or the opposite - being so fidgety or restless that you have been moving around a lot more than usual: not at all 9. Thoughts that you would be better off or of hurting yourself in some way: not at all Total score: 0 Depression Screening Interpretation: Negative Depression Screening Done: Yes Source: Developed by Drs. Adrian Garcia, Linnea Bowser, Se Booker and colleagues, with an educational emmy from [employer]. Thrive Questionnaire Date Thrive assessed: 12/12/24 I am a: Patient What is your living situation today?: I have a steady place to live Within the past 12 months, did the food you bought not last and you didn't have the money to get more?: Never true Within the past 12 months, did you worry whether your food would run out before you got money to buy more?: Never true Do you have trouble paying for medicines?: No Do you have trouble getting transportation to medical appointments?: No Do you have trouble paying your heating and electricity bill?: No Do you have trouble taking care of your child, family member or friend?: No Do you have trouble with day-to-day activities such as bathing, preparing meals, shopping, managing finances, etc.?: No Are you currently unemployed and looking for a job?: No Are you interested in more education?: No Please select the resources that you would like help with: None Currently or been in a relationship where the following occur: No concerns reported THRIVE Score: 0 ROBIN-7 AMB Questionnaire ROBIN-7 Date ROBIN - 7 assessed: 12/12/24 Feeling nervous, anxious, or on edge: 0 = Not at all Not being able to stop or control worryin = Not at all Worrying too much about different things: 0 = Not at all Trouble relaxin = Not at all Being so restless that it is hard to sit still: 0 = Not at all Becoming easily annoyed or irritable: 0 = Not at all Feeling afraid as if something awful might happen: 0 = Not at all Total ROBIN-7 score (0-4 normal; 5-9 mild; 10-14 moderate; 15-21 severe): 0 Source: Developed by Drs. Adrian Garcia, Linnea Bowser, Se Booker and colleagues, with an educational emmy from [employer]. Review of Systems Const All systems reviewed & are unremarkable except as noted in HPI and below Eyes Reports no additional complaints ENT Reports no additional complaints Card Reports no additional complaints Resp Reports no additional complaints GI Reports no additional complaints Reports no additional complaints Physical exam (Primary Care) Vital Signs: Last Vital Signs Temp 98.1 F 03/11/25 09:08 Pulse 77 03/11/25 09:08 Resp 17 03/11/25 09:08 BP 136/74 03/11/25 09:08 Pulse Ox 99 03/11/25 09:08 Oxygen Delivery Method Room Air 03/11/25 09:08 BMI result Body Mass Index 27.2 Tobacco/Smoking Status: Tobacco use Status Tobacco use date assessed 03/11/25 03/11/25 09:32 Patient Tobacco Use Status Never used Tobacco 03/11/25 09:11 e-Cigarette/Vaping Use Never Used 03/11/25 09:11 PHQ-9: PHQ-9 Score PHQ-9: Total score 0 03/11/25 09:50 Depression Screening Interpretation: Negative Thrive Assessment: Date of Thrive Assessment Date Thrive assessed 12/12/24 03/11/25 09:11 Currently or been in a relationship where the following occur: No concerns reported Const General: no acute distress HENMT Head: Yes normal to inspection Face and sinus: Yes normal facial exam Throat: Yes posterior oropharynx normal Eyes General: appearance normal, both eyes and all related structures Neck Neck: Yes supple Resp Effort & Inspection: normal respiratory effort Auscultation: clear to auscultation bilaterally Cardio Rhythm: regular rhythm Heart sounds: S1 normal heart sound present and S2 normal heart sound present GI Inspection: Yes normal to inspection Palpation (GI): Soft to palpation Percussion: Yes normal to percussion Auscultation: normal bowel sounds Coding Level of Care Code Est Pt Level 4 (11087) Diagnoses Hyperlipidemia E78.5 Hyperglycemia R73.9 Hypertension I10 Abnormal colonoscopy R93.3 Assessment & Plan Assessment & Plan (1) Hyperlipidemia: Code(s): E78.5 - Hyperlipidemia, unspecified Category: Medical Plan: Low-cholesterol diet discussed with the patient she will return for fasting blood work (2) Hyperglycemia: Code(s): R73.9 - Hyperglycemia, unspecified Category: Medical Plan: ADA diet regular exercise discussed with the patient (3) Hypertension: Code(s): I10 - Essential (primary) hypertension Category: Medical Plan: Continue amlodipine (4) Abnormal colonoscopy: Comment: 01/2019 [facility], 2 polyps: 1 hyperplastic and 1 serrated, repeat 5 yrs, referred to GI 01/2023 Code(s): R93.3 - Abnormal findings on diagnostic imaging of other parts of digestive tract Category: Medical Plan: Follow-up with GI at [facility] Orders: Orders Lipid Panel Today E78.5 - Hyperlipidemia, unspecified, R73.9 - Hyperglycemia, unspecified Hemoglobin A1c Today E78.5 - Hyperlipidemia, unspecified, R73.9 - Hyperglycemia, unspecified Medications: Changed From amlodipine 1 /12 orally daily; 135 tabs 3RF To amlodipine 1 and a half tablet orally daily;
== END 2025-03-11 10:09 | disposition home or self-care (01) ==
LOC: HO.HMCC 09:00
PROVIDERS: PCP Internal Medicine; Visit Provider Internal Medicine
DX: E78.5 Hyperlipidemia, unspecified (principal); R73.9 Hyperglycemia, unspecified; I10 Essential (primary) hypertension; R93.3 Abnormal findings on diagnostic imaging of other parts of digestive tract